=== PATIENT | female | born 1960 | race Caucasian/White ===

== ENCOUNTER 2016-03-05 06:33 | Emergency (ER) | payer OTHER ==
[~2016-03-05] VITALS: Ht 165.1 cm; Wt 99.6 kg
[2016-03-05 06:39] VITALS: BP 147/82; PULSE 93; RESP 16; TEMP 98.2; O2SAT 98
[2016-03-05] MEDS ORDERED: SIMV40TA PO (07:00)
[2016-03-05] MEDS ORDERED: SODIUM CHLOR 0.9% 1000 ML INJ 1,000 ML IV SCH (07:03)
[2016-03-05 07:08] VITALS: RESP 16; O2SAT 97
--- NOTE | 2016-03-05 07:09 | PD ---
HPI Chief Complaint: Flank/Kidney Pain Time Seen by Provider: 06:54 Travel History International Travel<30 days: No Contact w/Intl Traveler<30days: No Traveled to known affect area: No History of Present Illness HPI This is a 55 year old female with a history of kidney stone who presents to the emergency department with right sided flank pain that started yesterday, constant, worsening today, moving to the front of her abdomen associated with some nausea. She denies any fevers or chills. She says this feels similar to when she was recently diagnosed with kidney stones by her primary care physician. She says at that time she did a plain film which identified her stones. She denies any dysuria, frequency or urgency. She's never had abdominal surgery. She says she took 2 ibuprofen and a Lortab that she had left over but her pain was too severe so she came to the emergency department. [facility] Past Medical History High Cholesterol: Yes GERD: Yes Hypertension: Yes Kidney Stones: Yes Medical other: Yes (LOW BACK PAIN) Musculoskeletal: Yes (SCIATICA: HAS HAD SACROILIAC JOINT INJECTIONS: 2013) Pneumonia: Yes Tetanus Vaccination: > 5 Years ?: Not Menopausal: Yes : 0 Ovarian Cysts: Yes Past Surgical History Oral Surgery: Yes (WISDOM TEETH) Other Surgery: Yes (ADENOIDECTOMY) Social History Alcohol Use: Yes ("MAYBE ONCE EVERY 6 MONTHS") Tobacco Use: Yes (1 PPD) Substance Use: No Allergies-Medications (Allergen,Severity, Reaction): Coded Allergies: No Known Allergies (Unverified , 03/05/16) Reported Meds & Prescriptions Reported Meds & Active Scripts Active Reported Zegerid (Omeprazole-Sodium Bicarbonate) 40-1,100 Mg Cap 1 Cap PO DAILY Hydrocodone-Acetaminophen 5-325 mg Tab 1 Tab PO BID PRN Hydrochlorothiazide 12.5 Mg Cap 6.25 Mg PO DAILY Lisinopril 40 Mg Tab 40 Mg PO DAILY Zantac (Ranitidine HCl) 150 Mg Tab 150 Mg PO BID Duloxetine DR (Duloxetine HCl) 30 Mg Capdr 30 Mg PO TID Simvastatin 40 Mg Tab 40 Mg PO HS Review of Systems Except as stated in HPI: all other systems reviewed are Neg Physical Exam Narrative GENERAL:Well appearing, no acute distress SKIN: Warm and dry. HEAD: Atraumatic. Normocephalic. EYES: Pupils equal and round. No injection or drainage. ENT: Moist mucous membranes NECK: Trachea midline. CARDIOVASCULAR: Regular rate and rhythm. No murmur appreciated. RESPIRATORY: Clear to auscultation. Breath sounds equal bilaterally. GASTROINTESTINAL: Abdomen soft, tender to palpation in the right upper quadrant with no rebound or guarding. MUSCULOSKELETAL: No obvious deformities. NEUROLOGICAL: Awake and alert. No obvious cranial nerve deficits. Moving all extremities. PSYCHIATRIC: Appropriate mood and affect; insight and judgment normal. Data Data Last Documented VS Vital Signs Date Time Temp Pulse Resp B/P Pulse Ox O2 Delivery O2 Flow Rate FiO2 03/05/16 07:28 99.2 83 16 156/97 97 Room Air Orders Complete Blood Count With Diff (03/05/16 07:03) Comprehensive Metabolic Panel (03/05/16 07:03) Lipase (03/05/16 07:03) Urinalysis - C+S If Indicated (03/05/16 07:03) Ct Abd/Pel W/O Iv Contrast (03/05/16 07:03) Iv Access Insert/Monitor (03/05/16 07:03) Ecg Monitoring (03/05/16 07:03) Oximetry (03/05/16 07:03) Morphine Inj (Morphine Inj) (03/05/16 07:15) Ondansetron Inj (Zofran Inj) (03/05/16 07:15) Sodium Chlor 0.9% 1000 Ml Inj (Ns 1000 M (03/05/16 07:03) Sodium Chloride 0.9% Flush (Ns Flush) (03/05/16 07:15) Ketorolac Inj (Toradol Inj) (03/05/16 07:15) Ed Poc Ultrasound (03/05/16 ) Labs Laboratory Tests Test 03/05/16 07:10 White Blood Count 8.8 TH/MM3 Red Blood Count 4.90 MIL/MM3 Hemoglobin 14.2 GM/DL Hematocrit 42.3 % Mean Corpuscular Volume 86.3 FL Mean Corpuscular Hemoglobin 29.0 PG Mean Corpuscular Hemoglobin 33.6 % Concent Red Cell Distribution Width 12.7 % Platelet Count 342 TH/MM3 Mean Platelet Volume 7.4 FL Neutrophils (%) (Auto) 66.9 % Lymphocytes (%) (Auto) 22.9 % Monocytes (%) (Auto) 6.1 % Eosinophils (%) (Auto) 3.2 % Basophils (%) (Auto) 0.9 % Neutrophils # (Auto) 5.9 TH/MM3 Lymphocytes # (Auto) 2.0 TH/MM3 Monocytes # (Auto) 0.5 TH/MM3 Eosinophils # (Auto) 0.3 TH/MM3 Basophils # (Auto) 0.1 TH/MM3 CBC Comment DIFF FINAL Differential Comment Urine Collection Type CLEAN CATCH Urine Color YELLOW Urine Turbidity CLEAR Urine pH 6.0 Urine Specific [place] 1.027 Urine Protein NEG mg/dL Urine Glucose (UA) NEG mg/dL Urine Ketones NEG mg/dL Urine Occult Blood NEG Urine Nitrite NEG Urine Bilirubin NEG Urine Leukocyte Esterase NEG Urine RBC 0-3 /hpf Urine WBC 0-2 /hpf Urine Squamous Epithelial 0-5 /hpf Cells Microscopic Urinalysis Comment CULT NOT INDICATED Urine Collection Time 07:10 Sodium Level 145 MEQ/L Potassium Level 4.1 MEQ/L Chloride Level 109 MEQ/L Carbon Dioxide Level 26.7 MEQ/L Anion Gap 9 MEQ/L Blood Urea Nitrogen 22 MG/DL Creatinine 0.85 MG/DL Estimat Glomerular Filtration 69 ML/MIN Rate Random Glucose 120 MG/DL Calcium Level 8.7 MG/DL Total Bilirubin 0.2 MG/DL Aspartate Amino Transf 21 U/L (AST/SGOT) Alanine Aminotransferase 37 U/L (ALT/SGPT) Alkaline Phosphatase 164 U/L Total Protein 7.1 GM/DL Albumin 3.7 GM/DL Lipase 121 U/L [facility] Medical Decision Making Medical Screen Exam Complete: Yes Emergency Medical Condition: Yes Interpretation(s) Afebrile, mild hypertension Leukocytosis Electrolytes reassuring Alkaline phosphatase 164 Urinalysis: No infection CT: No kidney stone on the right side, fatty liver with gallstones Differential Diagnosis Nephrolithiasis, pyelonephritis, urinary tract infection, cholecystitis, cholelithiasis Narrative Course This is a 55-year-old female who presents to the emergency department with right sided flank and abdominal pain. She's been told she has kidney stones in the past. She is placed on a monitor and an IV was established. Labs were obtained which demonstrated an elevated alkaline phosphatase but a normal white blood cell count and normal LFTs. CT scan was obtained which demonstrated left- sided renal calculi but nothing on the right. Patient does have obvious gallstones on CT scan. I performed a bedside ultrasound which demonstrates stones in the gallbladder but a normal gallbladder wall thickness and no signs of cholecystitis. I suspect her pain is due to biliary colic. Patient was advised that she likely needs an elective cholecystectomy. She was advised of the signs and symptoms of acute cholecystitis and asked to return if she develops fever, vomiting or pain worsens. Procedures Procedure Narrative Plan of care gallbladder ultrasound: Stones visualized in the gallbladder, gallbladder wall is 1 mm thick, common bile duct measures 4 mm, no periCholecystic fluid, no sonographic Mensah sign Diagnosis Primary Impression: Gallstones Referrals: Douglas Butcher MD Patient Instructions: General Instructions Additional Instructions: If you develop severe or worsening abdominal pain, fever>100.4, persistent vomiting or inability to eat or drink return to the emergency department immediately. Follow-up with a general surgeon regarding getting your gallbladder removed. Med/Other Pt SpecificInfo: Prescription(s) given Scripts Oxycodone-Acetaminophen (Percocet)5-325 mg Tab1-2 Tab PO Q6H PRN (PAIN) #15 TAB Ref 0 Prov:Carly Nicholas MD 03/05/16 Disposition: 01 DISCHARGE HOME Condition: Stable Carly Nicholas MD Mar 05, 2016 07:09
[2016-03-05] MEDS ORDERED: ONDANSETRON HCL 4 MG/2 ML VIAL IVP ONE (07:15)
[2016-03-05] MEDS ORDERED: MORPHINE SULFATE 4 MG/ML INJ IV PUSH ONE (07:15)
[2016-03-05] MEDS ORDERED: KETOROLAC TROMETHAMINE 30 MG/ML (IVP) VIAL IV PUSH ONE (07:15)
[2016-03-05] MEDS ORDERED: SODIUM CHLORIDE 0.9% FLUSH 5 ML FLUSH IVF PRN (07:15)
[2016-03-05 07:16] LABS: AUTOMATED NEUTROPHIL # 5.9 TH/MM3 (1.8-7.7); BASOPHIL # 0.1 TH/MM3 (0-0.2); BASOPHIL % 0.9 % (0.0-2.0); BLOOD, URINE NEG (NEG); EOSINOPHIL # 0.3 TH/MM3 (0-0.4); EOSINOPHIL % 3.2 % (0.0-4.0); GLUCOSE,URINE NEG (NEG); HEMATOCRIT 42.3 % (35.0-46.0); HEMO FLAGS DIFF FINAL; KETONE, URINE NEG (NEG); LYMPH % 22.9 % (9.0-44.0); MEAN CELL VOLUME 86.3 FL (80.0-100.0); MEAN CORPUSCULAR HGB CONC 33.6 % (32.0-36.0); MONO % 6.1 % (0.0-8.0); NEUT % 66.9 % (16.0-70.0); NITRITE,URINE NEG (NEG); PLATELET COUNT 342 TH/MM3 (150-450); RED CELL DISTRIBUTION WIDTH 12.7 % (11.6-17.2); WHITE BLOOD COUNT 8.8 TH/MM3 (4.0-11.0)
[2016-03-05] MEDS ORDERED: ZANT150T2 PO (07:23)
[2016-03-05] MEDS ORDERED: HYDR12.57 PO (07:23)
[2016-03-05] MEDS ORDERED: DULO1CAP2 PO (07:23)
[2016-03-05] MEDS ORDERED: ZEGE40CA3 PO (07:23)
[2016-03-05] MEDS ORDERED: LISI40TA PO (07:23)
[2016-03-05] MEDS ORDERED: HYDR-3516 PO (07:23)
[2016-03-05 07:24] LABS: CHLORIDE 109 MEQ/L (98-107); POTASSIUM 4.1 MEQ/L (3.5-5.1); SODIUM (NA) 145 MEQ/L (136-145)
[2016-03-05 07:28] VITALS: BP 156/97; PULSE 83; RESP 16; TEMP 99.2; O2SAT 97
[2016-03-05 07:28] LABS: ANION GAP 9 MEQ/L (5-15); BICARBONATE 26.7 MEQ/L (21.0-32.0); BLOOD UREA NITROGEN 22 MG/DL (7-18)
[2016-03-05 07:31] LABS: ALT (GPT) 37 U/L (10-53); AST (GOT) 21 U/L (15-37); GLOMERULAR FILTRATION RATE 69 ML/MIN (>89)
[2016-03-05 07:32] LABS: TOTAL BILIRUBIN ADULT 0.2 MG/DL (0.2-1.0)
[2016-03-05 07:33] LABS: COMMENT (UR) CULT NOT INDICATED; CULTURE IF INDICATED CULT NOT INDICATED; METHOD OF COLLECTION CLEAN CATCH; RBC, URINE 0-3 /hpf (0-3); SQUAMOUS EPITHELIAL CELL URINE 0-5 /hpf (0-5); URINE COLOR YELLOW (YELLW/STRAW); WBC, URINE 0-2 /hpf (0-5)
[2016-03-05 07:34] LABS: ALKALINE PHOSPHATASE 164 U/L (45-117)
--- NOTE | 2016-03-05 08:16 | RADHPO ---
EXAM DATE/TIME: 03/05/2016 07:46 [place] COMPARISON: No previous studies available for comparison. INDICATIONS : Right flank pain for two days. ORAL CONTRAST: No oral contrast ingested. RADIATION DOSE: 24.87 CTDIvol (mGy) MEDICAL HISTORY : Renal calculi. Hypertension. SURGICAL HISTORY : None. ENCOUNTER: Initial ACUITY: 2 days PAIN SCALE: 8/10 LOCATION: Right flank TECHNIQUE: Volumetric scanning of the abdomen and pelvis was performed. Using automated exposure control and ad justment of the mA and/or kV according to patient size, radiation dose was kept as low as reasonably achievable to obtain optimal diagnostic quality images. FINDINGS: The lung base is are clear. There is moderate fatty replacement in the liver. The spleen is prominent. Gallstones are seen the benign-appearing gallbladder. The pancreas is unremarkable. The right adrenal gland is normal. 1 cm low density nodule seen on th e left renal vein. Right kidney: There are no calculi in the right kidney. There are no calcifications along the right ureter. Left kidney: There are 3 calcifications in the left kidney largest measuring 7 mm. There no calcifications along the expected course of the left ureter. . Pelvic contents are unremarkable. There is no evidence for diverticulitis, adnexa are unremarkable. There is no free fluid. CONCLUSION: Nonobstructing small renal stones on the left. There no calcifications in the right kidney. There is no perinephric stranding. Marked fatty replacement of liver with gallstones. Haseeb Moran MD FACR on March 05, 2016 at 8:12 Board Certified Radiologist. This report was verified electronically.
[2016-03-05] MEDS ORDERED: PERC5TAB12 PO (08:38)
[2016-03-05] MEDS ORDERED: oxyCODONE/ACETAMINOPHEN 5 MG/325 MG TAB PO ONE (08:45)
[2016-03-05 09:00] VITALS: BP 135/67
== END 2016-03-05 09:05 | disposition home or self-care (01) ==
LOC: PHED 06:33
DX: K80.20 Calculus of gallbladder without cholecystitis without obstruction (principal); R11.0 Nausea; R10.9 Unspecified abdominal pain; E78.00 Pure hypercholesterolemia, unspecified; N20.0 Calculus of kidney; I10 Essential (primary) hypertension; F17.210 Nicotine dependence, cigarettes, uncomplicated
CPT/HCPCS: 74176; 80053; 81001; 83690; 85025; 96361; 96374; 96375; 99284; J1885; J2270; J2405; J7030